=== PATIENT | male | born 1965 | race Caucasian/White ===

== ENCOUNTER 2019-07-14 09:46 | Emergency (ER) | payer OTHER, SELFPAY ==
[2019-07-14 10:04] VITALS: BP 141/76; PULSE 79; RESP 16; TEMP 36.3; O2SAT 100
--- NOTE | 2019-07-14 10:18 | ED.SKABFB ---
HPI - Skin/Abscess/Foreign Bdy General Chief complaint: Skin/Abscess/Foreign Body Stated complaint: RED AREA/PAIN TO R BACK Time Seen by Provider: 07/14/19 10:18 Source: patient and RN notes reviewed History of Present Illness HPI narrative: Patient is a 54-year-old male that presents the urgent care with complaints of red painful rash to the right lower back. Patient states that he felt it last night and woke up this morning with increased pain. Patient denies any history of shingles. No other acute complaints. No acute distress noted. Patient aware the plan of care. Related Data Home Medications Medication Instructions Recorded Confirmed No Home Medications 07/14/19 07/14/19 Allergies Allergy/AdvReac Type Severity Reaction Status Date / Time No Known Allergies Allergy Verified 07/14/19 10:03 Review of Systems Review of Systems: Narrative: CONSTITUTIONAL: Denies fever, chills, or sweats. EYES: Denies visual changes, redness, or discharge. ENT: Denies rhinorrhea, congestion, sore throat, or otalgia. CARDIOVASCULAR: Denies chest pain, palpitations, or edema. RESPIRATORY: Denies cough or dyspnea. GASTROINTESTINAL: Denies abdominal pain, nausea, vomiting, or diarrhea. GENITOURINARY: Denies dysuria or hematuria. SKIN: Reports of painful red rash to the right back MUSCULOSKELETAL: Denies back pain, joint pain, or myalgia. NEUROLOGIC: Denies headache, numbness, or weakness. All other systems reviewed are negative, except as documented in HPI. [facility]MERLY [facility] Family History Family History (Updated 11/27/15 @ 23:19 by DOCTOR UNKNOWN) Mother Family history of diabetes mellitus in first degree relative Sibling Family history of malignant neoplasm of breast in first degree relative Social History Social History Smoking status: Never smoker Alcohol intake: current Comments At the time of my signature, I reviewed and agree with the nursing past medical, surgical, social, and family history. There is no relevant family history pertinent to the patient complaint. Exam Narrative: Exam Narrative: GENERAL: This is a well-nourished, well-developed patient, in no apparent distress. HEAD: normocephalic, atraumatic. EYES: PERRL. Sclera clear/white. Vision is grossly intact. EARS: External ears normal NOSE: External nose normal with no obvious nasal discharge THROAT: Mucous membranes moist NECK: Neck supple CARDIOVASCULAR: Regular rate and rhythm without murmurs, gallops, or rubs. RESPIRATORY: Clear to auscultation. Breath sounds equal bilaterally. No wheezes, rales, or rhonchi. SKIN: 5 x 10 cm area of blistering erythemic rash noted to the right mid back, does not cross the midline NEURO: awake, alert, and oriented to person, place and time. There were no obvious focal neurologic abnormalities. EXTREMITIES: No clubbing, cyanosis, or edema. Course Vital Signs Vital signs: Vital Signs Temperature 97.4 F L 07/14/19 10:04 Pulse Rate 79 07/14/19 10:04 Respiratory Rate 16 07/14/19 10:04 Blood Pressure 141/76 H 07/14/19 10:04 Pulse Oximetry 100 07/14/19 10:04 Temperature 97.4 F L 07/14/19 10:04 Pulse Rate 79 07/14/19 10:04 Respiratory Rate 16 07/14/19 10:04 Blood Pressure 141/76 H 07/14/19 10:04 Pulse Oximetry 100 07/14/19 10:04 Reviewed?patient is informed that they may have pre-hypertension or hypertension based on a blood pressure reading in the department. I recommend the patient call the primary care provider listed on their discharge instructions or a physician of their choice this week to arrange follow-up for further evaluation of possible pre-hypertension or hypertension. MDM - Skin/Abscess/Foreign Bdy MDM Narrative Medical decision making narrative: Advised the patient to avoid scratching the rash. May use ice over a towel as needed for comfort. Complete oral antiviral as directed. Use antiviral cream as directed. Should not return to work for 7 days. Be cautious around elder
== END 2019-07-14 10:47 | disposition home or self-care (01) ==
PROVIDERS: Emergency Provider Nurse Practitioner Family
DX: B02.9 Zoster without complications (principal)
CPT/HCPCS: 99203; G0463

== ENCOUNTER 2024-06-05 18:09 | Emergency (ER) | payer SELFPAY ==
--- OUTSIDE RECORDS SUMMARY | 2024-06-05 18:11 | XMS_ITS | Clinical Summary ---
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 Gender Identity Not on file Sexual Orientation Not on file Plan of Treatment Health Maintenance Due Date Last Done Comments Colorectal Cancer Screening Colonoscopy (10 Years) 1967 Annual Physical 1970 Hepatitis C 1985 DTaP, Tdap and Td Vaccines ( 1 - Tdap) 1986 Hepatitis B Vaccines (1 of 3 - 19+ 3-dose series) 1986 Zoster Vaccines (1 of 2) 2017 COVID-19 Vaccine (2023-2 5 season) 2023 Influenza Adult (#1) 2024 Meningococcal B Vaccine Aged Out No l onger eligible based on patient's age to complete this topic Meningococcal Vaccine Aged Out No ranjana moe eligible based on patient's age to complete this topic Pneumococcal Vaccine: Pediat rics (0 to 5 Years) and At-Risk Patients (6 to 64 Years) Aged Out No longer eligible b ased on patient's age to complete this topic RSV Immunizations Under 20 Months Aged Out No longer eligible based on patient's age to complete this topic
--- OUTSIDE RECORDS SUMMARY | 2024-06-05 18:11 | XMS_ITS | Clinical Summary ---
Author Organization [facility] Address [address] [place] [address] Phone Care Team Providers Care Civil Cadd Technician Name Role Phone David Marsh MD Primary Care Provider Social History Tobacco Use Types Packs/Day Years Used Date Smoking Tobacco: Never Assessed Sex and Gender Information Value Date Recorded Sex Assigned at Not on file Legal Sex Male 4:25 PM CDT Gender Identity Not on file Sexual Orientation Not on file Plan of Treatment Health Maintenance Due Date Last Done Comments Hepatitis C Virus (HCV) Screening 1967 TdaP Immunization 1967 Hepatitis B Immunization (1 of 3 - 19+ 3-dose series) 1986 Colonoscopy 2012 Colorectal Cancer Screening 2012 Cologuard 2017 Immunochemical Fecal Occult Blood 2017 Pneumococcal Immunization (5 0+ years) (1 of 1 - PCV) 2017 Zoster Immunization (1 of 2) 2017 PSA Discussion 2022 Influenza Immunization (#1) 2023 SARS-COV-2 Immunization ( - season) 2023 Respiratory Syncytial Virus (RSV) Immunization (Adult) (1 - 1-dose 75+ series) 2042 Meningococcal Immunization (ACWY) Aged Out No longer eligible based on patient's age to complete this topic Pneumococcal Immunization Combined Aged Out No longer eligible based on patient's age to complete this topic Rotavirus Immunization Aged Out No lo nger eligible based on patient's age to complete this topic Care Teams Civil Cadd Technician Relationship Specialty Start Date End Date David Marsh MD [address] [place] [address] PCP - General Internal Medicine 12/14/16
[2024-06-05 18:25] VITALS: BP 149/74; PULSE 92; RESP 16; TEMP 37.2; O2SAT 98
--- NOTE | 2024-06-05 19:58 | ED_ITS ---
HPI - URI/Sore Throat General Chief Complaint: Upper Respiratory Infection Stated Complaint: Cough/Sore Throat Time Seen by Provider: 06/05/24 19:40 Source: patient, RN notes reviewed and old records reviewed Mode of arrival: ambulatory Limitations: no limitations History of Present Illness HPI Narrative: 59 year old male who presents to [facility] care with complaints of body aches, sore throat, cough. ? fevers, feeling hot and cold since Monday.. Patient reports that he has been using cough drops for his symptoms. Patient reports that he knows of flu exposure from his boss at work. MD elicited complaint: cough, sore throat and other (feels hot and cold, Body aches) Onset (ago): day(s) (3) Severity: mild Able to tolerate fluids by mouth: Yes Treatments prior to arrival: other (cough drops) Related Data Home Medications ?Medication ?Instructions ?Recorded ?Confirmed ?Last Taken ?Type No Home Medications 07/14/19 06/05/24 Unknown History Allergies Allergy/AdvReac Type Severity Reaction Status Date / Time No Known Allergies Allergy Verified 06/05/24 18:44 Review of Systems Review of Systems: CONSTITUTIONAL: Reports malaise, chills, sweats, or fever. EYES: Denies visual changes, redness, or discharge. ENT: Reports rhinorrhea, congestion, sinus pain, no otalgia and no sore throat. CARDIOVASCULAR: Denies chest pain, palpitations, or edema. RESPIRATORY: Reports cough.? Denies dyspnea. GASTROINTESTINAL: Denies abdominal pain, nausea, vomiting, diarrhea SKIN: Denies rash or itching. MUSCULOSKELETAL: Reports myalgia. NEUROLOGIC: Denies headache. All systems reviewed & are unremarkable except as noted in HPI and below PMFSH Family History Family History Mother Family history of diabetes mellitus in first degree relative Sibling Family history of malignant neoplasm of breast in first degree relative Social History Social History Smoking status: Never smoker Alcohol intake: current Comments At time of signature, agree with nursing past medical, surgical, social and family history. There is no relevant family history pertinent to the presenting complaint Exam Narrative: GENERAL: ill-appearing, well-nourished, and in no acute distress. HEAD: Normocephalic EYES: PERRLA, conjunctivae clear ENT: Nares clear, turbinates edematous and erythematous, clear discharge. Mucous membranes moist. TM pearly barnett with dull light reflex bilaterally; no tragal tenderness. Oropharynx erythematous without lesions. Tonsils not enlarged and without exudate, no drooling, no hoarseness, no trismus, uvula midline post nasal drainage. NECK: Supple. No lymphadenopathy CHEST: Clear to auscultation, breath sounds equal. No wheezing, rhonchi, rales, or stridor. No respiratory distress, speaks in full sentences. cough noted SAO2 98% on room air HEART: Regular rate and rhythm. No murmur heard. SKIN: Warm, dry, no rash. NEURO: Alert and oriented x3. PSYCH: Normal mood and affect Course Course Emergency Course: Patient is aware of diagnosis, understands and agrees to treatment plan.? Anticipatory guidance given.? Patient agrees to follow-up as directed and is aware of reasons to seek care at the emergency department. Portions of this record may have been created with voice recognition software Level of Care: Express Care Visit Vital Signs Vital signs: Vital Signs Temperature 37.2 C 06/05/24 18:25 Pulse Rate 92 06/05/24 18:25 Respiratory Rate 16 06/05/24 18:25 Blood Pressure 149/74 H 06/05/24 18:25 Pulse Oximetry 98 06/05/24 18:25 Oxygen Delivery Room Air 06/05/24 18:25 Temperature 37.2 C 06/05/24 18:25 Pulse Rate 92 06/05/24 18:25 Respiratory Rate 16 06/05/24 18:25 Blood Pressure 149/74 H 06/05/24 18:25 Pulse Oximetry 98 06/05/24 18:25 Oxygen Delivery Room Air 06/05/24 18:25 Reviewed MDM - URI/Sore Throat MDM Narrative Medical decision making narrative: Differential diagnosis considered: Orantes virus, strep pharyngitis, allergic rhinitis, upper respiratory tract infection, sinusitis, rhinosinusitis, nasopharyngitis. viral pharyngitis, otitis media, otitis externa, pneumonia, bronchitis, viral cough syndrome, viral syndrome, and influenza.? Exam findings show no acute concerns or changes; patient is non-toxic appearing and is in no distress.? Patient is appropriate for outpatient treatment and follow-up. Differential Diagnosis Differential diagnosis: Likely upper respiratory infection, viral infection, influenza, pharyngitis and other (cough) Medical Records Attestation: I reviewed the patient's medical records. Lab Data Attestation: I reviewed the patient's lab results. Lab results narrative: Influenza A positive, Influenza B negative, COVID antigen negative Labs: Lab Results 06/05/24 Range/Units 18:30 POC Influenza A Ag Positive (Negative) POC Influenza B Ag Negative (Negative) POC SARS CoV-2 Ag Negative (Negative) reviewed Critical Care Time Critical Care Time Critical Care Time: No Discharge Plan Discharge Clinical Impression: Influenza A Patient Disposition: Home, Self-Care Condition: Stable Instructions: Antibiotic Form, Influenza (ED) Additional Instructions: Increase fluids especially juices and water [id number] cough and cold medicine of your choice for your symptoms Zyrtec Claritin or Jo daily Tylenol or ibuprofen for any fever pain Cough medication such as Delsym or Robitussin heat to the face 20-30 minutes 4-6 times a day for pain Salt water gargles, throat lozenges or throat sprays as desired Monitor your fevers every 4 hours You must be fever free for 24 hours without use of Tylenol or ibuprofen before you can return to work Patient Language: Wolof Prescriptions: No Action No Home Medications Follow-up/Referrals: PHYSICIAN,SIGN HANGER SUPERVISOR [Primary Care Provider] - Stand Alone Forms: Work/School Release IP Time of Disposition: 20:12 [place] Coma Scale Eyes: Open Verbal: Oriented and Alert Motor: Follows Commands Pound Coma Total Score: 15
[2024-06-05 20:04] LABS: EDCOVIDSCREEN Negative (Negative); EDINFLUASCREEN Positive (Negative); EDINFLUBSCREEN Negative (Negative)
== END 2024-06-05 20:15 | disposition home or self-care (01) ==
PROVIDERS: Emergency Provider Registered Nurse
DX: J10.1 Influenza due to other identified influenza virus with other respiratory manifestations (principal); Z20.822 Contact with and (suspected) exposure to COVID-19
CPT/HCPCS: 87426; 87804; 99212; G0463

== ENCOUNTER 2025-01-15 09:12 | Emergency (ER) | payer SELFPAY ==
--- NOTE | ~2025-01-15 | XR_ITS ---
X-rays left knee Indication: Pain Comparison: None Technique: 4 views left knee Findings/Impression: 1. Moderate joint effusion. 2. No fracture or dislocation. Reviewed, dictated and finalized at location R.
[2025-01-15 09:16] VITALS: BP 144/80; PULSE 77; RESP 16; TEMP 36.6; O2SAT 100
--- OUTSIDE RECORDS SUMMARY | 2025-01-15 09:57 | XMS_ITS | Clinical Summary ---
Author Organization [facility] Address [address] [place] [address] Phone Care Team Providers Care Feather Cutting Machine Feeder Name Role Phone David Marsh MD Primary [...] of 3 - 19+ 3-dose series) 1986 Cologuard 2012 Colonoscopy 2012 Colorectal Cancer Screening 2012 Immunochemical Fecal Occult Blood 2012 Pneumococcal Immunization (5 0+ years) (1 of 1 - PCV) 2017 Zoster Immunization (1 of 2) 2017 SARS-COV-2 Immunization (1 - 2023- season) 2023 Influenza Immunization (#1) 2024 Respiratory Syncytial Virus (RSV) Immunization (Adult) (1 - 1-dose 75+ series) 2042 Human Papillomavirus (HPV) Immunization Aged Out No longer eligible b ased on patient's age to complete this topic Meningococcal Immunization (ACWY) Aged Out No longer eligible based on patient's age to complete this topic Rotavirus Immunization Aged Out No lo nger eligible based on patient's age to complete this topic Care Teams Feather Cutting Machine Feeder Relationship Specialty Start Date End Date David Marsh MD PCP - General Internal Medicine 12/14/16
--- NOTE | 2025-01-15 10:13 | ED_ITS ---
HPI - Extremity Problem General Chief complaint: Extremity Problem,Nontraumatic Stated complaint: left knee pain Time Seen by Provider: 01/15/25 09:47 Source: patient and RN notes reviewed Mode of arrival: ambulatory Limitations: no limitations History of Present Illness HPI Narrative: Patient presents today complaining of a 3 week history of left knee pain with a one-week history of swelling. Currently rates his pain at rest 0/10 with 5/10 with movement. He has tried heating pad and knee sleeve without improvement. Denies numbness or tingling. Denies injury or trauma. 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 Related Data Allergies Allergy/AdvReac Type Severity Reaction Status Date / Time No Known Allergies Allergy Verified 01/15/25 09:33 [facility] Family History Family History Mother Family history of diabetes mellitus in first degree relative Sibling Family history of malignant neoplasm of breast in first degree relative Social History Social History Smoking status: Never smoker Alcohol intake: current Comments At time of signature, I have reviewed and agree with nursing past medical, surgical, social and family history unless otherwise noted. Please see nursing chart for further information. There is no relevant family history pertinent to the presenting complaint Exam Narrative: GENERAL: Well-appearing, well-nourished, and in no acute distress. HEAD: Normocephalic, atraumatic. EYES: EOMI. No redness or drainage. Conjunctivae normal. ENT: Mucous membranes pink and moist. NECK: Normal AROM. CHEST: No respiratory distress. EXTREMITIES: Left knee: Mild tenderness along the medial joint line. Mild generalized knee swelling. No erythema, ecchymosis noted. Mild pain with passive flexion and extension. Distal sensation intact. Capillary refill normal. Posterior tibial pulse normal. SKIN: Warm, dry, no rash. Capillary refill normal. Normal skin turgor. NEURO: No focal deficits. Alert and oriented x3. Gait steady. PSYCH: Normal affect. No signs of depression or anxiety. Course Course Level of Care: Express Care Visit Vital Signs Vital signs: Vital Signs Temperature 97.8 F 01/15/25 09:16 Pulse Rate 77 01/15/25 09:16 Respiratory Rate 16 01/15/25 09:16 Blood Pressure 144/80 H 01/15/25 09:16 Pulse Oximetry 100 01/15/25 09:16 Oxygen Delivery Room Air 01/15/25 09:16 Temperature 97.8 F 01/15/25 09:16 Pulse Rate 77 01/15/25 09:16 Respiratory Rate 16 01/15/25 09:16 Blood Pressure 144/80 H 01/15/25 09:16 Pulse Oximetry 100 01/15/25 09:16 Oxygen Delivery Room Air 01/15/25 09:16 Reviewed MDM - Extremity (Nontraumatic) MDM Narrative Medical decision making narrative: 59-year-old male patient presents today with left knee pain and swelling without injury or trauma. Upon exam, patient has a mild to moderately swollen left knee with tenderness to the medial joint line. Neurovascularly intact. X-ray shows moderate joint effusion. Recommend conservative treatment with PCP or orthopedic follow-up for further evaluation. Will place patient on meloxicam for pain and swelling. Patient asking for work note for a few days can rest his knee as he is up on his feet for most the day. Patient agrees with plan. Vital signs stable. Anticipatory guidance given. Differential Diagnosis Differential diagnosis: Likely other (Osteoarthritis, ligamentous injury, meniscus injury, bone spur) Imaging Data Radiologist's impression: Findings/impression: 1. Moderate joint effusion. 2. No fracture or dislocation. Critical Care Time Critical Care Time Critical Care Time: No Discharge Plan Discharge Clinical Impression: Effusion of knee joint, left Patient Disposition: Home Condition: Stable Instructions: Swollen Knee Joint (ED) Additional Instructions: Your x-ray shows fluid collection in your knee joint. Elevate and ice the knee. Rest. Take the meloxicam as prescribed. Follow-up with your PCP or orthopedic physician for further evaluation. Your blood pressure was elevated above 120/80 today at Urgent Care. This puts you above the threshold for follow up. Please schedule a followup visit with your personal physician as soon as possible, for further evaluation and treatmen t. Even blood pressure exceeding 120/80 may indicate pre-hypertension. Patient Language: Kosovan Prescriptions: New meloxicam 15 mg tablet 15 mg PO DAILY Qty: 20 0RF Follow-up/Referrals: PHYSICIAN,BAKER BREAD [Primary Care Provider, Internal Medicine] Brien Goel MD [Physician, Orthopedics] Stand Alone Forms: Work/School Release IP Time of Disposition: 10:42
--- NOTE | 2025-01-15 10:30 | PC.NURSE ---
PT DECLINED ICE FOR COMFORT
== END 2025-01-15 10:45 | disposition home or self-care (01) ==
PROVIDERS: Emergency Provider Nurse Practitioner
DX: M25.462 Effusion, left knee (principal)
CPT/HCPCS: 73564; 99213; G0463